=== PATIENT | female | born 1955 | race Caucasian/White ===

== ENCOUNTER → 2021-01-07 | Outpatient (CLI) | payer MEDICARE, OTHER | LOC: KOH-I 12-16 13:30 | DX: F17.210 Nicotine dependence, cigarettes, uncomplicated (principal); J98.11 Atelectasis | CPT/HCPCS: 71271 ==

== ENCOUNTER → 2021-05-05 | Outpatient (CLI) | payer MEDICARE, OTHER | LOC: EMI 15:25 | DX: M54.5 Low back pain (principal); M54.10 Radiculopathy, site unspecified; M48.07 Spinal stenosis, lumbosacral region; M53.3 Sacrococcygeal disorders, not elsewhere classified | CPT/HCPCS: 72148 ==